=== PATIENT | female | born 1980 | race Caucasian/White ===

== ENCOUNTER 2023-12-07 03:02 | Outpatient (CLI) | payer BC, SELFPAY ==
[2023-12-07 12:52] LABS: Abs Immature Grans 0.02 10^3/uL (0.0-0.06); Absolute Basophil Count 0.05 10^3/uL (0.0-0.2); Absolute Eosinophil Count 0.11 10^3/uL (0.0-0.7); Absolute Lymphocyte Count 1.74 10^3/uL (1.2-3.4); Absolute Monocyte Count 0.47 10^3/uL (0.1-0.8); Absolute Neutrophil Count 4.92 10^3/uL (1.2-6.7); Basophils % 0.7 %; Eosinophils % 1.5 %; HCT 37.7 % (36.0-46.0); HGB 12.6 g/dL (11.2-15.7); Immature Grans % 0.3 %; Lymphocytes % 23.8 %; MCH 29.6 pg (27.0-33.0); MCHC 33.4 % (32.0-36.0); MCV 89 fL (80-95); MPV 10.3 fL (8.0-11.0); Monocytes % 6.4 %; Neutrophils % 67.3 %; Platelet Count 230 10^3/uL (130-400); RBC 4.25 10^6/uL (3.93-5.22); RDW-SD 39.2 fL; WBC 7.31 10^3/uL (4.4-10.8)
[2023-12-07 13:56] LABS: ALT 18 U/L (14-59); AST 12 U/L (15-37); Albumin 4.1 g/dL (3.4-5.0); Alkaline Phosphatase 40 U/L (46-116); Anion Gap 6.8 mmol/L (3-11); BUN 10 mg/dL (7-18); CO2 29.2 mmol/L (21.0-32.0); CREATININE 0.8 mg/dL (0.55-1.02); Calcium 8.8 mg/dL (8.5-10.1); Calculated LDL 97 mg/dL (<100); Chloride 104 mmol/L (98-107); Cholesterol 172 mg/dL (<200); Estimated GFR 93.12 (mL/min/1.73m2); Ferritin 35 ng/mL (8-252); Glucose 88 mg/dL (74-106); HDL Cholesterol 64 mg/dL (40-60); Potassium 3.8 mmol/L (3.5-5.1); Sodium 140 mmol/L (136-145); Total Protein 7.2 g/dL (6.4-8.2); Triglyceride 55 mg/dL (<150); Vitamin B12 252 pg/mL (193-986); Vitamin D 25 Total 19.7 ng/mL (30-100)
[2023-12-07 15:30] LABS: FREE T4 0.94 ng/dL (0.76-1.46)
[2023-12-07 22:11] LABS: CRP, High Sensitivity 0.74 mg/L (See Note)
[2023-12-07 22:28] LABS: T3,Free 3.5 pg/mL (2.8-5.3)
[2023-12-10 09:24] LABS: DHEA Sulfate 86 ug/dL (75-410); Insulin 3.9 uIU/mL (<29.0)
[2023-12-10 12:48] LABS: FSH 10.6 mIU/mL (See Note); Thyroglobulin Antibody 111 U/mL (<=60); Thyroperoxidase Antibody 1227 U/mL (<=60)
[2023-12-13 19:51] LABS: Thyroid Stimulating Immunoglob <1.0 TSI index (<=1.3)
[2023-12-15 15:04] LABS: Testosterone, Free 0.44 ng/dL (<0.13-0.98); Testosterone, Total 35 ng/dL (8-60)
[2023-12-19 14:41] LABS: T3 (Triiodothyronine) Reverse 19 ng/dL
== END 2023-12-07 03:03 | disposition home or self-care (01) ==
PROVIDERS: PCP Family Medicine; Visit Provider Naturopath
DX: R63.5 Abnormal weight gain (principal); F43.23 Adjustment disorder with mixed anxiety and depressed mood; K58.1 Irritable bowel syndrome with constipation; R51.9 Headache, unspecified; N95.1 Menopausal and female climacteric states; M35.9 Systemic involvement of connective tissue, unspecified; H93.11 Tinnitus, right ear; M25.50 Pain in unspecified joint; R53.83 Other fatigue; R41.840 Attention and concentration deficit; R00.2 Palpitations
CPT/HCPCS: 36415; 80053; 80061; 82306; 82627; 84402; 84403; 86141; 86376; 82607; 82728; 83001; 83036; 83525; 84439; 84445; 84481; 84482; 85025